=== PATIENT | male | born 1955 | race Caucasian/White ===

== ENCOUNTER → 2019-03-15 | Outpatient (CLI) | payer BC ==
--- NOTE | 2019-03-15 15:46 | KCIC ---
Examination: HAND BILAT 3V History: Polyarthralgia, pain Comparison/Correlation: None Findings: Total of 3 images of the right hand and 3 images of the left hand were obtained. Mild narrowing of the distal interphalangeal joints is noted. Subchondral lucencies along the right third metacarpal head noted.. No displaced fracture or bone destruction. Radiopaque densities are present within the dorsal soft tissues of the left first digit interphalangeal joint.. Impression: Mild degenerative changes. Radiopaque densities involving the soft tissues of the dorsal aspect of the left interphalangeal joint. Correlate for possibility of foreign bodies. Electronically signed by: Del Ring MD (03/15/2019 3:43 PM) [facility]
== END | disposition home or self-care (01) ==
LOC: KCIC 10:10
PROVIDERS: ATTEND Family Medicine
DX: M19.042 Primary osteoarthritis, left hand (principal); M19.041 Primary osteoarthritis, right hand
CPT/HCPCS: 73130